=== PATIENT | male | born 1975 | race Caucasian/White ===

== ENCOUNTER 2023-05-04 08:38 | Outpatient (CLI) | payer BC, OTHER, SELFPAY | END 2023-05-04 08:39 | disposition home or self-care (01) | PROVIDERS: PCP Family Medicine; Visit Provider Family Medicine | DX: Z00.00 Encounter for general adult medical examination without abnormal findings (principal); E78.2 Mixed hyperlipidemia; I10 Essential (primary) hypertension | CPT/HCPCS: 80048; 80061 ==

== ENCOUNTER 2023-05-21 10:51 | Outpatient (CLI) | payer OTHER, SELFPAY | END 2023-05-21 10:52 | disposition home or self-care (01) | PROVIDERS: PCP Family Medicine; Visit Provider Family Medicine | DX: Z01.818 Encounter for other preprocedural examination (principal) | CPT/HCPCS: 85025 ==

== ENCOUNTER 2024-02-18 10:11 | Outpatient (REF) | payer OTHER, SELFPAY ==
--- OUTSIDE RECORDS SUMMARY | 2024-02-18 10:13 | XMS_ITS | Clinical Summary ---
Author Name Unknown Organization [employer] [facility] Address [place], [place] [address] Care Team Providers Care Coil Strapper Name Role Phone Cortez Webb MD Primary Care Provider + Allergies Active Allergy Reactions Criticality Noted Date Comments Penicillins Hives 01/29/2024 Medications Medication Sig Dispensed Refills Start Date End Date Status losartan (COZAAR) 100 mg tablet Take 100 mg by mouth once daily. 12/02/2022 Active cyclobenzaprine (FLEXERIL) 5 mg tabletIndications:P ain Take 1 Tablet (5 mg) by mouth three times daily. 15 Tablet 02/14/2023 Active methylPREDNISolone (Medrol, Pawel,) 4 mg tabletIndications:P ain Take by mouth as instructed per packaging. 21 Tablet 02/14/2023 Active Encounters Date Type Department Care Team Description 01/29/2024 10:24 AM CDT - 01/29/2024 11:59 PM CDT Hospital Encounter [facility] [address] [place] [address] Braulio Sterling MD Discitis of lumbar region 01/29/2024 Travel from Last 3 Months Social History Tobacco Use Types Packs/Day Years Used Date Smoking Tobacco: Never Smokeless Tobacco: Never Tobacco Cessation:Counseling Given: Not Answered Alcohol Use Standard Drinks/Week Comments Yes 0 (1 standard drink = 0.6 oz pur e alcohol) once a month if that Sex and Gender Information Value Date Recorded Sex Assigned at Not on file Gender Identity Not on file Sexual Orientation Not on file Obstetrics History Last Filed Vital Signs Vital Sign Reading Time Taken Comments Blood Pressure 121/79 01/29/2024 2:15 PM CDT Pulse 70 01/29/2024 2:15 PM CDT Temperature 36.7 ??C (98.1 ??F) 01/29/2024 10:50 AM C DT Respiratory Rate 16 01/29/2024 2:15 PM CDT Oxygen Saturation 97% 01/29/2024 2:15 PM CDT Inhaled Oxygen Concentration - - Weight 95.3 kg (210 lb) 01/29/2024 10:50 AM CDT Height 188 cm (6' 2) 01/29/2024 10:50 AM CDT Body Mass Index 26.96 01/29/2024 10:50 AM CDT Plan of Treatment Health Maintenance Due Date Last Done Comments Tdap 1986 Depression screening for age 12+ 1987 HIV for age 15-65 1990 BMI (ht and wt on same day) for age 18+ 1993 Hepatitis C screening for ag e 18-79 1993 Tetanus booster 1995 Colonoscopy through age 75 2020 Lipids for age 45-75 2020 COVID-19 vaccine series (2022- season) 2023 Influenza for age 9-49 06/22/2024 Pneumococcal series for age 6-64 Aged Out No longer eligible based on patient's age to complete this topic Procedures Procedure Name Priority Date/Time Associated Diagnosis Comments IR DISK ASPIRATION Routine 01/29/2024 1: 50 PM CDT Discitis of lumbar region ANAEROBIC CULTURE Today 01/29/2024 1:4 0 PM CDT BODY FLUID CULTURE,STAIN (AEROBIC) Today 01/29/2024 1:40 PM CDT HEMOGLOBIN STAT 01/29/2024 10:39 AM CDT PLATELET COUNT STAT 01/29/2024 10:39 AM CDT PROTIME-INR STAT 01/29/2024 10:38 AM CDT from Last 3 Months Results * IR DISK ASPIRATION (01/29/2024 1:50 PM CDT) Anatomical Region Laterality Modality Spine, CERVICAL SPINE, THORA CIC SPINE, LUMBAR SPINE X-Ray Angiography, Other Narrative 01/29/2024 1:56 PM CDT Neurointerventional Procedure Report Patient: Anselmo Moctezuma (1975), Date: 01/29/2024 Physician(s): David Zayas MD Procedure(s): Percutaneous aspiration within the nucleus pulposus, intervertebral disc, or paravertebral tissue for diagnostic purposes (CPT 68407) Fluoroscopic guidance and localization of needle or catheter tip for spine or paraspinous diagnostic or therapeutic injection procedures (CPT +51166) Moderate sedation (CPT 93284, +17538 x 3) Pre-operative diagnosis (indication): Suspected L5-S1 discitis at recent MRI Post-operative diagnosis: Same Anesthesia: Under physician supervision, midazolam 4 mg and fentanyl 200 mcg were administered intravenously for moderate sedation. Pulse oximetry, heart rate, and blood pressure were continuously monitored by a trained, dedicated nurse. The physician who performed the procedure provided 44 minutes of intra-service time with the patient. Consent: Informed consent was obtained from the patient following a detailed discussion of the procedure, alternatives, risks and potential benefits. Time-out: Performed according to the [place] Protocol. Description: The patient was placed in the prone position on the fluoroscopy table. The back was sterilely prepped and draped. Lidocaine 1% was used for local anesthesia. The L5-S1 disc was accessed with a 17 gauge OstyCut system via a left lateral approach using fluoroscopic guidance. Small disc fragments were obtained and sent in 5 mL preservative-free normal saline. A sterile dressing was applied. Complications: None Findings: As above Specimens: As above Estimated blood loss: <1 mL Medications: As above Fluoroscopy time: 4:10, 195 mGy Impression: Successful L5-S1 disc biopsy using fluoroscopic guidance David Zayas MD Neurointerventional Radiology Braulio Davenport MD IR * Aerobic Culture Body Fluid (01/29/2024 1:40 PM CDT) CULTURE No Growth. 02/03/2024 8:10 AM CDT [facility] GRAM STAIN No PMNs 02/03/2024 8:10 AM CDT [facility] TR[facility] LABORATORY GRAM STAIN 2+ RBCs 02/03/2024 8:10 AM CDT [facility] TRAL LABORATORY GRAM STAIN No Epithelial cells 02/03/2024 8:10 AM CDT [facility] GRAM STAIN No organisms seen 02/03/2024 8:10 AM CDT [facility] Body Fluid BODY FLUID SPECIMEN / Unknown Non-Blood / Unknown 01/29/2024 1:40 PM CDT 01/29/2024 4:05 PM CDT David Zayas MD MICROBIOLOGY [facility] [address] [place] [address], * Anaerobic Culture (01/29/2024 1:40 PM CDT) CULTURE No anaerobes isolated 02/04/2024 11:57 AM CDT [facility] Other (Other) Non-Blood / Unknown 01/29/2024 1:40 PM CDT 01/29/2024 4:05 PM CDT David Zayas MD MICROBIOLOGY Performing Organization Address City/[facility]/ZIP Co de Phone Number [facility] [address] [place] [address], [place] * Platelet Count (01/29/2024 10:39 AM CDT) PLATELET COUNT 284 140 - 440 thou/cu mm 01/29/2024 10:52 AM CDT [facility] MPV 8.5 6.5 - 11.0 fL 01/29/2024 10:52 AM CDT [facility] Blood BLOOD SPECIMEN / Unknown Venipuncture / Unknown 01/29/2024 10:39 AM CDT 01/29/2024 10:47 AM CDT Marie Giron NP HEMATOLOGY Performing Organization Address City/[facility]/ZIP Co de Phone Number [facility] [address] [place] [address], * Hemoglobin (01/29/2024 10:39 AM CDT) HEMOGLOBIN 17.0 13.5 - 17.5 g/dL 01/29/2024 10:52 AM CDT [facility] MCV 85 80 - 100 fL 01/29/2024 10:52 AM CDT [facility] Blood BLOOD SPECIMEN / Unknown Venipuncture / Unknown 01/29/2024 10:39 AM CDT 01/29/2024 10:47 AM CDT Marie Giron NP HEMATOLOGY Performing Organization Address [facility] Co de Phone Number [facility] [address] [place] [address], * Protime-INR (01/29/2024 10:38 AM CDT) INR 1.1 <1.3 01/29/2024 10:57 AM CDT [facility] PROTIME 11.8 10.3 - 12.3 sec 01/29/2024 10:57 AM CDT [facility] Blood BLOOD SPECIMEN / Unknown Venipuncture / Unknown 01/29/2024 10:38 AM CDT 01/29/2024 10:39 AM CDT Narrative [facility] - 01/29/2024 10:57 AM CDT ?Therapeutic Range 2.0-3.0 for most anticoagulated patients 2.5-3.5 or 4.0 for high risk patients The INR is only used for patients on stable oral anticoagulant therapy. It makes no significant contribution to the diagnosis or treatment of patients whose Protime is prolonged for other reasons. INR results are increased when heparin levels exceed 1.0 U/mL, which corresponds to an aPTT >125 seconds if the patient is on UFH. Marie Martha Ertelt COMMERCIAL ESTIMATOR HEMATOLOGY [facility] [address] [place] [address], from Last 3 Months Care Teams Coil Strapper Relationship Specialty Start Date End Date Cortez Webb MD [address] [place] [address] PCP - General Family Practice 02/14/23
[2024-02-18 10:29] LABS: Basophils Absolute Auto 0.01 K/uL (0.00-0.30); Basophils Percent Auto 0.2 % (0.0-3.0); Eosinophils Absolute Auto 0.05 K/uL (0.00-0.50); Hematocrit 48.2 % (37.0-53.0); Hemoglobin* 16.2 gm/dL (13.5-17.5); Immature Granulocytes Abs Auto 0.04 K/uL (0.00-0.30); Immature Granulocytes Pct Auto 0.8 %; Lymphocytes Absolute Auto 1.76 K/uL (0.90-2.90); Lymphocytes Percent Auto 35.5 % (20-44); Mean Corpuscular HGB Conc 34 gm/dL (32-36); Mean Corpuscular Hemoglobin 28 pg (26-34); Mean Corpuscular Volume 83 fL (80-100); Monocytes Percent Auto 8.1 % (0.0-11.0); Neutrophils Percent Auto 54.4 % (42.0-72.0); Platelet Count* 309 K/uL (140-440); RDW Coefficient of Variation % 12.1 % (11.5-15.5); Red Blood Count 5.78 m/uL (4.30-5.90); White Blood Count* 4.96 K/uL (4.50-11.00)
[2024-02-18 10:32] LABS: Slide Review Reflex No
[2024-02-18 11:08] LABS: Erythrocyte SedimentationRate* 2 mm/hr (2-15)
[2024-02-18 11:21] LABS: C Reactive Protein* 0.6 mg/dL (0.5-1.0)
== END 2024-02-18 10:12 | disposition home or self-care (01) ==
LOC: NPINS 10:11
PROVIDERS: PCP Family Medicine; Visit Provider Orthopaedic Surgery
DX: M46.40 Discitis, unspecified, site unspecified (principal)
CPT/HCPCS: 85025; 85651; 86140

== ENCOUNTER 2024-12-01 14:48 | Outpatient (CLI) | payer OTHER, SELFPAY | END 2024-12-01 14:49 | disposition home or self-care (01) | LOC: CT 14:48 | PROVIDERS: PCP Family Medicine; Visit Provider Orthopaedic Surgery Sports Medicine | DX: M19.012 Primary osteoarthritis, left shoulder (principal); Z01.818 Encounter for other preprocedural examination | CPT/HCPCS: 73200 ==

== ENCOUNTER 2024-12-25 11:13 | Outpatient (CLI) | payer OTHER, SELFPAY | END 2024-12-25 11:14 | disposition home or self-care (01) | PROVIDERS: PCP Family Medicine; Visit Provider Family Medicine | DX: E78.2 Mixed hyperlipidemia (principal); I10 Essential (primary) hypertension; Z01.818 Encounter for other preprocedural examination | CPT/HCPCS: 80048; 80061; 85025 ==

== ENCOUNTER 2025-01-07 06:56 | Day surgery (SDC) | payer OTHER, SELFPAY ==
[2025-01-07] VITALS (24 sets, daily range): BP systolic 97–146; BP diastolic 47–88; PULSE 70–100; RESP 10–36; TEMP 36–36.9; O2SAT 85–99; BMI 27.7
[2025-01-07] MEDS: SODIUM CHLORIDE 0.9 % (FLUSH) 10 ML SYRINGE IVF (07:20)
--- NOTE | 2025-01-07 07:42 | W.PM.H&PU ---
History & Physical Update History & Physical Update H&P Reviewed and patient assessed: No changes noted
[2025-01-07] MEDS: ACETAMINOPHEN 500 MG TABLET 1000 MG PO (07:50)
[2025-01-07] MEDS: OXYCODONE (CR) 10 MG TAB.ER.12H PO (07:50)
--- NOTE | 2025-01-07 07:51 | CRLHL7_ITS ---
For Patients: As a result of the Century Cures Act, medical imaging exams and procedure reports are released immediately into your electronic medical record. You may view this report before your referring provider. If you have questions, please contact your health care provider. Indication: Total shoulder replacement Technique: Two views left shoulder Findings/Impression: Hardware from a left shoulder arthroplasty is in satisfactory position. Bone alignment is normal. No sign of acute fracture. Postop changes are within normal limits. Atelectasis in the left lung base noted. Dictated by Cortez Waddell MD @ 01/07/2025 12:27:58 PM (Electronically Signed)
[2025-01-07] MEDS: LACTATED RINGERS 1000 ML 1,000 ML 100 ML IV ×2 (08:05→11:03)
[2025-01-07] MEDS: fentaNYL 100 MCG/2 ML inj IVP (08:38)
[2025-01-07] MEDS: MIDAZOLAM HCL 1 MG/ML inj IVP (08:38)
--- NOTE | 2025-01-07 08:46 | SUR.PREOP ---
TIME?OUT:?0837 PT/RN/MDA?VERIFICATION?OF?SURGICAL?SITE-LEFT SHOULDER,?NERVE BLOCK, PROCEDURE,?AND?CONSENT OBTAINED?PRIOR?TO?INVASIVE?PROCEDURE.
[2025-01-07] MEDS: CEFAZOLIN 2 GM in 0.9 % SODIUM CHLORIDE Mini-bag 100 ML IVPB (09:30)
[2025-01-07] MEDS: TRANEXAMIC ACID 100 MG/ML INJ 1000 MG IV (09:40)
--- NOTE | 2025-01-07 10:18 | P.ANES_ITS ---
Anesthesia Charges Start Date/Time Anesthesia Start Date: 01/07/25 Anesthesia Start Time: 09:16 Stop Date/Time Anesthesia Stop Date: 01/07/25 Anesthesia Stop Time: 11:51 Coding CPT Codes CPT Codes: ANESTH SHOULDER REPLACEMENT - 81798 ([id number]) P2 - PATIENT W/MILD SYST DISEASE, QK - COMMUNITY RELATIONS POLICE LIEUTENANT 2-4 CNCRNT ANES PROC, QX - BALER SVC W/ MD MED DIRECTION
--- NOTE | 2025-01-07 10:18 | W.PM.NB ---
Nerve Block Nerve Block Time Seen by Provider: 08:40 Date Seen: 01/07/25 Type of block requested by surgeon for post-operative analgesia: supraclavicular Side: left Time out performed: Yes Verification of patient name: Yes Verification of date of : Yes Site marking: site marked Name of person performing procedure: Justice Continuous monitoring Was continuous monitoring of O2 sat, B/P, credit review manager, recorded every 15 minutes?: Yes Procedure Checklist: sterile prep, needles and gloves Ultrasound guided. Images saved: Yes Medications given in 5ml increments after negative aspiration: Marcaine %: 0.25 mL: 10 Needle gauge: 22 and Exparel mL: 10 Patient tolerated procedure well: Yes Block Charges Block Charge (with Pro Fee): Brachial Plexus Use of Ultrasound Machine for Block: Yes- US Guidance/pain block
--- NOTE | 2025-01-07 10:18 | W.ANESCHARGE ---
Anesthesia Charges Start Date/Time Anesthesia Start Date: 01/07/25 Anesthesia Start Time: 09:16 Stop Date/Time Anesthesia Stop Date: 01/07/25 Anesthesia Stop Time: 11:51 Coding CPT Codes CPT Codes: ANESTH SHOULDER REPLACEMENT - 52123 ([id number]) P2 - PATIENT W/MILD SYST DISEASE, QK - JAVASCRIPT SOFTWARE ENGINEER 2-4 CNCRNT ANES PROC, QX - PROFESSOR OF LITERATURE SVC W/ MD MED DIRECTION
--- NOTE | 2025-01-07 11:26 | P.ORPRC_ITS ---
Procedure Note Date of procedure: 01/07/25 Procedure: PREOPERATIVE DIAGNOSIS: 1. Left shoulder osteoarthrosis, primary, severe POSTOPERATIVE DIAGNOSIS: 1. Left shoulder osteoarthrosis, primary, severe 2. Left shoulder long head of biceps tendinopathy / tenosynovitis PROCEDURE: 1. Left total shoulder arthroplasty-anatomic. 2. Left shoulder long head of biceps open tenodesis SURGEON: Moses Carballo MD. OPTICIAN MANAGER: Doc DEAN - Of note, a skilled child care assistant was critical for this case to aid in patient positioning, tissue retraction, limb manipulation/positioning, awareness of and protection of critical structures, and closure. ANESTHESIA: General plus interscalene block EBL: 100 mL IMPLANTS: [employer] INHANCE: XL Blazer. 54 x 22 mm centered humeral head; Medium glenoid component (cemented ring) - metal central peg COMPLICATIONS: None evident INDICATIONS: The patient is a pleasant 49-year-old male who has experienced severe left shoulder pain and difficulty with use. Workup included x-rays which revealed severe osteoarthrosis. Physical exam was consistent with associated pain. Given the deformity, the dysfunction, and the pain, recommendation was made for surgery. DESCRIPTION OF PROCEDURE: Following a thorough discussion of risks, benefits, and alternatives, consent was obtained and the left shoulder was marked. The patient was brought to the operating room and placed supine on the operating table. Induction of anesthesia was undertaken. 2 g IV Ancef and 1 g tranexamic acid was administered within 1 hr of incision preoperatively. Appropriate time- out was performed identifying proper patient, site, and procedure. The operative extremity was prepped and draped in the appropriate sterile fashion using ChloraPrep after the patient was positioned in the beach chair with head in neutral alignment and all bony prominences well padded. A longitudinal incision was made for deltopectoral approach. Deltoid and cephalic vein were retracted laterally and spared throughout the case. The clavipectoral fascia was identified and divided longitudinally staying lateral to the conjoined tendon / coracoid. The conjoined tendon was protected with a blunt Hohmann. The long head of the biceps tendon was identified and tenodesis performed suturing it to the pectoralis major tendon at their confluence. The upper 1/4 of the pectoralis major was released from its insertion. The superior portion of the rotator cuff was inspected and found to have good integrity. The subscapularis was released from its lesser tuberosity via a tenotomy down through the 3 sisters which were cauterized. After releasing the subscapularis, the capsule was released from the inferior humeral neck allowing us to remove the inferior humeral head osteophyte. The subscapularis was also released from the superior glenohumeral ligament and middle glenohumeral ligament. It was then tucked into the subscapularis fossa anteriorly, and we turned our attention to the humeral preparation. The humerus was dislocated, and humeral head cut performed paying attention to the patient's standing rock version anatomy and consistet with the preop plan. The guide pin was drilled through the lateral humeral cortex, a Blazer trial consistent with the preop plan was applied, and the humerus was planed. The humerus was then protected with the Blazer and attention was turned to the glenoid preparation. The humerus was retracted posteriorly. The subscap was protected anteriorly and the labrum was released along the glenoid anterior, inferior and posterioinferior regions via combination of Bovie cautery or 15 blade. Based on the preoperative CT scan of the shoulder, the shoulder was found have approximately 19 ? of retroversion. The preop plan targeted a resting position of 7? retroversion upon completion of the glenoid prep. The 3D printed guide was applied, the guide pin was placed and the subsequent preparation performed with Reamer down to cortical/subchondral bone. Cement was mixed on the back table an d filled the ring after thorough irrigation normal saline was performed followed by suction and drying of the bone. The real implant was opened and inserted with excellent surrounding fit circumferentially. We then turned our attention back to the humerus. Consistent with the preop planning, the appropriate head was selected, trialed, and found have an excellent fixation and tension. 50% bounce-back was visualized with posterior directed force, internal rotation was achieved to 60? comfortably while the shoulder was abducted to 90?, and the conjoined tendon had good tension. At this stage, a 3 min Betadine soak was performed followed by a thorough irrigation with normal saline. Subscapularis was reapproximated with # 1 PDS (x5). The rotator interval was reapproximated as well. The deltopectoral interval was reapproximated with 0 Vicryl, subcutaneous and subcuticular closure was then performed with number 2-0 Vicryl and 4-0 Monocryl, respectively. A skilled child care assistant was critical for this case to aid in patient positioning, tissue retraction, bone exposure, limb manipulation/positioning, shoulder dislocation/relocation, patient safety, and closure. PLAN: 1. Sling much of the time to operative extremity. May come out of this for elbow, forearm, wrist, and digit range of motion and pendulums, or when sedentary. 2. PT/OT consults for education and assistance. 3. Tylenol, Ibuprofen, and/or Oxycodone for analgesics PRN. 4. 14 days doxycycline PO. 5. Early ambulation encouraged.
[2025-01-07] MEDS: fentaNYL 100 MCG/2 ML inj 50 MCG IVP ×2 (11:51→11:58)
--- NOTE | 2025-01-07 11:51 | P.ANES_ITS ---
Anesthesia Charges Start Date/Time Anesthesia Start Date: 01/07/25 Anesthesia Start Time: 09:16 Stop Date/Time Anesthesia Stop Date: 01/07/25 Anesthesia Stop Time: 11:51 Coding CPT Codes CPT Codes: ANESTH SHOULDER REPLACEMENT - 26391 ([id number]) P2 - PATIENT W/MILD SYST DISEASE, QK - BEAUTY SCHOOL INSTRUCTOR 2-4 CNCRNT ANES PROC, QX - COIL BINDER SVC W/ MD MED DIRECTION
--- NOTE | 2025-01-07 11:51 | W.ANESCHARGE ---
Anesthesia Charges Start Date/Time Anesthesia Start Date: 01/07/25 Anesthesia Start Time: 09:16 Stop Date/Time Anesthesia Stop Date: 01/07/25 Anesthesia Stop Time: 11:51 Coding CPT Codes CPT Codes: ANESTH SHOULDER REPLACEMENT - 86891 ([id number]) P2 - PATIENT W/MILD SYST DISEASE, QK - SAND MILLER 2-4 CNCRNT ANES PROC, QX - SHOEBLACK SVC W/ MD MED DIRECTION
[2025-01-07] MEDS: HYDROmorphone 0.5 mg/0.5 ml inj IVP (12:09)
[2025-01-07] MEDS: ACETAMINOPHEN 325 MG TABLET PO (13:06)
--- NOTE | 2025-01-07 13:41 | SUR.PHASEII ---
Occupational therapy (Megan) in room to work with pt on getting dressed. Pt's in room as well.
== END 2025-01-07 14:28 | disposition home or self-care (01) ==
PROVIDERS: PCP Family Medicine; Visit Provider Orthopaedic Surgery Sports Medicine
PROC: 0RRJ0JZ Replacement of Right Shoulder Joint with Synthetic Substitute, Open Approach (ICD-10-PCS; CPT 23472; principal; 2025-01-07 09:00)
DX: M19.012 Primary osteoarthritis, left shoulder (principal); M75.22 Bicipital tendinitis, left shoulder; M65.812 Other synovitis and tenosynovitis, left shoulder; G89.18 Other acute postprocedural pain
CPT/HCPCS: 23472; 23430; 01638; 64415; 73030; 76942; 97110; 97165; A9270; C1776; J0330; J0665; J0666; J0690; J1171; J2250; J2371; J2704; J2795; J3010; J3490; J7120

== ENCOUNTER 2025-03-20 13:00 | Outpatient (RCR) | payer OTHER, SELFPAY ==
--- NOTE | 2024-12-29 15:37 | OT.OPOE ---
OT Outpatient Ortho Eval OT Outpatient Ortho Eval* Start: 12/29/24 14:58 Freq: Status: Active Protocol: Document 12/29/24 14:58 CSS (Rec: 12/29/24 15:33 CSS [id number]) E-signed By Philomena Brice OTR/L OT OP Ortho Eval Details Complexity Complexity Low Insurance Information Insurance Information [facility] Outpatient History/Precautions Current Condition/Medical Diagnosis Referring Provider Dr. Carballo Medical Diagnoses M19.012- primary osteoarthritis Treatment Diagnosis M25.512 pain in shoulder (left ) Medical Conditions Arthritis Medical/Functional History Medical History Reviewed Yes Prior Level of Function/Mobility Indep with ADLs/IADLs at baseline Social History Employment Status Electrical Products Sales Engineer Employed Current Occupation [employer] Subjective Subjective Subjective Pt reports will be having R shoulder replaced in a few months. Reports has supportive at home. Plans to live on main level. Pain Assessment Pain Pain Yes Pain Comments 7/10 with AROM Range of Motion and Strength Shoulder Range of Motion and Strength Shoulder Range of Motion and Strength limitations in L shoulder, specifically with shoulder flexion OT Problems Problems Problems Decreased Range of Motion,Pain Other Problems Sleeping Patient Potential Good Assessment Assessment Assessment Pt is a 49 year old male who is referred to OP OT for pre- op shoulder education. Pt plans to have L shoulder arthroplasty by Dr. Carballo on 01/07/25. In today's evaluation and treatment, pt educated on precautions, ADL retraining with non surgical hand, AE, fall prevention and post-op exercises. Pt would benefit from skilled OT during hospital after surgery and then OP PT for ongoing exercises; pt to be seen at [facility] for OP PT. Occupational Therapy Treatment Plan - OP Potential Rehabilitation Potential Good Set Goals Goals Set with Patient Yes Goals Goals 1. Patient will be able to properly don/doff his shoulder sling w/ mod independence while complying to shoulder precautions. - goal not met- pt declines 2. Patient will demonstrate how to accurately perform post-op HEP with use of handout w/ modified independence. - goal met 3. Patient will be able to verbalize post op shoulder precautions. - goal met. Treatment Plan Treatment Plan Evaluation,Therapeutic Exercise,Self Care/Home Management Expected Frequency 1x Week Expected Duration 2-4 Weeks Home Program Home Program Home Program Initiated Home Program Specifics post op shoulder exercises Certification Certification Statement I Certify That: Therapy Services Provided, Therapy Plan Established, Therapy Plan Reviewed Certification Information Clinic ID # [id number] Initial Certification Date 12/29/24 Recertification Due Date 12/30/24 Provider Signature Required Yes Provider Signature Shows Agreement With POC & Medical Necessity Physician NPI Number Write NPI# Here Physician Comment/Change Comment or Changes Physician Signature & Date Requested Please Sign/Date Here
== END 2025-05-12 15:33 | disposition home or self-care (01) ==
PROVIDERS: PCP Family Medicine; Visit Provider Orthopaedic Surgery Sports Medicine
DX: Z48.89 Encounter for other specified surgical aftercare (principal); M19.012 Primary osteoarthritis, left shoulder; Z96.612 Presence of left artificial shoulder joint; Z51.89 Encounter for other specified aftercare
CPT/HCPCS: 97110; 97140; 97161; 97165; 97535